=== PATIENT | female | born 1955 | race Caucasian/White ===

== ENCOUNTER 2022-10-18 08:13 | Day surgery (SDC) | payer MEDICARE ==
[2022-10-12 13:34] VITALS: BMI 25.7
[2022-10-18] MEDS ORDERED: fentaNYL PF 100 MCG/2 ML SYRINGE ONE ×2 (08:44→12:51)
[2022-10-18] MEDS ORDERED: Levofloxacin 500 mg/D5W 100 ml Premix Bag ONE (08:55)
[2022-10-18] MEDS ORDERED: Iopamidol 15 ML ONE (11:19)
[2022-10-18] MEDS ORDERED: PROPOFOL 200 MG/20 ML VIAL ONE (11:45)
[2022-10-18] MEDS ORDERED: NEOSTIGMINE 3 MG/3 ML SYR 3 MG/3 ML SYRINGE ONE (11:45)
[2022-10-18] MEDS ORDERED: Rocuronium Bromide 10 MG/ML (10ML VIAL) ONE (11:45)
[2022-10-18] MEDS ORDERED: Ondansetron PF 4 MG/2 ML Vial ONE (11:45)
[2022-10-18] MEDS ORDERED: Lidocaine 1% PF 5 ML VIAL ONE (11:45)
[2022-10-18] MEDS ORDERED: GLYCOPYRROLATE/PF 0.2 MG/ML VIAL ONE (11:45)
[2022-10-18] MEDS ORDERED: HYDROmorphone 0.5 MG/0.5 ML SYRINGE ONE (13:11)
[2022-10-18] MEDS ORDERED: fentaNYL 50 mcg/mL 1 mL Vial ONE (13:34)
[2022-10-18] MEDS ORDERED: Oxybutynin 5 MG TAB ONE (13:36)
[2022-10-18] MEDS ORDERED: Phenazopyridine HCl 100 MG TAB ONE (13:36)
[2022-10-18] MEDS ORDERED: HYDROcodone/Acetaminophen 5/325 mg Tablet ONE (14:16)
== END 2022-10-18 14:27 | disposition home or self-care (01) ==
LOC: SDC 08:13
PROVIDERS: ATTEND Urology
PROC: BT1FYZZ Fluoroscopy of Left Kidney, Ureter and Bladder using Other Contrast (ICD-10-PCS; principal; 2022-10-18)
PROC: 0TH98YZ Insertion of Other Device into Ureter, Via Natural or Artificial Opening Endoscopic (ICD-10-PCS; 2022-10-18)
DX: N13.30 Unspecified hydronephrosis (principal); N39.41 Urge incontinence; K52.9 Noninfective gastroenteritis and colitis, unspecified; Z87.19 Personal history of other diseases of the digestive system; Z90.89 Acquired absence of other organs
CPT/HCPCS: 52332; 52351; 74018; 74420; C1747; C1769; C2617; J3010; J3490; J1170; J1956; J2405; J2704; Q9967

== ENCOUNTER 2022-12-13 13:59 | Outpatient (CLI) | payer MEDICARE | END 2022-12-13 14:00 | disposition home or self-care (01) | LOC: SCSMRI 13:59 | PROVIDERS: ATTEND Internal Medicine | DX: C53.8 Malignant neoplasm of overlapping sites of cervix uteri (principal); N13.30 Unspecified hydronephrosis; K76.89 Other specified diseases of liver; K83.8 Other specified diseases of biliary tract; R19.00 Intra-abdominal and pelvic swelling, mass and lump, unspecified site; Z96.0 Presence of urogenital implants | CPT/HCPCS: 36415; 74183; 80048 ==

== ENCOUNTER → 2022-12-13 | Outpatient (CLI) | payer MEDICARE | LOC: PET 12:30 | PROVIDERS: ATTEND Internal Medicine | DX: C53.8 Malignant neoplasm of overlapping sites of cervix uteri (principal) | CPT/HCPCS: 78815; A9552 ==

== ENCOUNTER 2022-12-20 23:59 | Inpatient (IN) | payer MEDICARE ==
[2022-12-21 00:45] VITALS: BMI 24.3
[2022-12-21] MEDS ORDERED: Ondansetron PF 4 MG/2 ML Vial IVP PRN (01:55)
[2022-12-21] MEDS ORDERED: Promethazine HCl 25 MG/ML VIAL IM PRN (01:59)
[2022-12-21] MEDS ORDERED: Acetaminophen 500 MG TAB PO PRN (02:10)
[2022-12-21] MEDS ORDERED: Acetaminophen 325 MG TAB PO PRN (02:18)
[2022-12-21] MEDS ORDERED: Vancomycin (BATCH) 1.25 GM in Premix 1 BAG IVPB SCH (03:00)
[2022-12-21] MEDS: Lactated Ringer's 1,000 ML IV SCH ×3 (03:03→22:25)
[2022-12-21] MEDS ORDERED: Lactated Ringer's 500 ML IV SCH (04:45)
[2022-12-21] MEDS: HYDROcodone/Acetaminophen 7.5/325 mg Tablet PO PRN ×2 (05:31→12:26)
[2022-12-21] MEDS ORDERED: Meropenem 1 GM in Sodium Chloride 0.9% 100 ML IVPB SCH ×2 (06:00→14:00)
[2022-12-21] MEDS: Oxybutynin 5 MG TAB PO SCH ×2 (08:26→20:55)
[2022-12-21 08:38] LABS: #Eosinphils 0.4 thou/uL (0.0-0.7); #Monocytes 0.6 thou/uL (0.11-0.59); #Neutrophils 8.6 thou/uL (1.40-6.50); %Basophils 0.3 % (0.0-1.0); %Eosinophils 3.5 % (0.0-10.0); %Monocytes 5.7 % (0.0-10.0); %Neutrophils 76.9 % (42.0-75.0); Hematocrit 27.2 % (36.0-47.0); Hemoglobin 8.4 g/dL (12.0-16.0); Mean Corpuscular HGB CONC 30.9 g/dL (32.0-36.0); Mean Corpuscular Hemoglobin 29.6 pg (27.0-31.0); Mean Corpuscular Volume 95.8 fl (78.0-98.0); Mean Platelet Volume 8.9 fL (7.4-10.4); Platelet Count 455 10x3/uL (130-400); RBC Distribution Width 17.2 % (11.5-14.5); Red Blood Cell (RBC) Count 2.84 mill/uL (4.20-5.40); White Blood Cell (WBC) Count 11.2 10x3/uL (4.8-10.8)
[2022-12-21] MEDS ORDERED: HYDROcodone/Acetaminophen 5/325 mg Tablet PO SCH (08:45)
[2022-12-21] MEDS: Heparin 5,000 UNITS/ML VIAL SC SCH ×3 (08:58→20:56)
[2022-12-21 09:06] LABS: Anion Gap 15 mmol/L (10-20); BUN (Urea Nitrogen) 10 mg/dL (9.8-20.1); Calc. Creatinine Clearance 79 mL/min (70-130); Calcium 7.2 mg/dL (7.8-10.44); Carbon Dioxide 15 mmol/L (23-31); Chloride 108 mmol/L (98-107); Estimated GFR 96; Glucose 58 mg/dL (80-115); Potassium 3.8 mmol/L (3.5-5.1); Sodium 134 mmol/L (136-145)
[2022-12-21] MEDS ORDERED: Magnevist 469MG/ML 20 ML VIAL ONE (10:56)
[2022-12-21] MEDS: Promethazine 25 MG TAB PO PRN ×2 (13:05→17:07)
[2022-12-21] MEDS: Meropenem 1 GM in Sodium Chloride 0.9% 100 ML IVPB SCH ×2 (14:45→20:57)
[2022-12-21] MEDS: HYDROcodone/Acetaminophen 10/325 mg Tablet PO PRN ×2 (16:20→22:11)
[2022-12-21] MEDS: Lorazepam 1 MG TAB PO PRN (20:55)
[2022-12-22] MEDS: Vancomycin 1 GM in Premix 1 BAG IVPB SCH (03:57)
[2022-12-22] MEDS: Promethazine 25 MG TAB PO PRN ×4 (03:57→22:45)
[2022-12-22] MEDS: HYDROcodone/Acetaminophen 10/325 mg Tablet PO PRN ×4 (03:57→22:44)
[2022-12-22] MEDS: Meropenem 1 GM in Sodium Chloride 0.9% 100 ML IVPB SCH ×3 (06:20→20:48)
[2022-12-22 06:26] LABS: #Basophils 0.1 thou/uL (0.0-0.2); #Eosinphils 0.4 thou/uL (0.0-0.7); #Monocytes 0.8 thou/uL (0.11-0.59); #Neutrophils 8.2 thou/uL (1.40-6.50); %Basophils 0.4 % (0.0-1.0); %Eosinophils 3.9 % (0.0-10.0); %Lymphocytes 14.5 % (21.0-51.0); %Monocytes 7.4 % (0.0-10.0); %Neutrophils 72.4 % (42.0-75.0); Hematocrit 28.5 % (36.0-47.0); Mean Corpuscular HGB CONC 31.6 g/dL (32.0-36.0); Mean Corpuscular Hemoglobin 29.7 pg (27.0-31.0); Mean Corpuscular Volume 94.1 fl (78.0-98.0); Platelet Count 449 10x3/uL (130-400); RBC Distribution Width 17.5 % (11.5-14.5); Red Blood Cell (RBC) Count 3.03 mill/uL (4.20-5.40); White Blood Cell (WBC) Count 11.3 10x3/uL (4.8-10.8)
[2022-12-22 07:01] LABS: Anion Gap 11 mmol/L (10-20); BUN (Urea Nitrogen) 12 mg/dL (9.8-20.1); Calc. Creatinine Clearance 57 mL/min (70-130); Calcium 8.3 mg/dL (7.8-10.44); Carbon Dioxide 25 mmol/L (23-31); Chloride 107 mmol/L (98-107); Estimated GFR 66; Glucose 82 mg/dL (80-115); Potassium 3.5 mmol/L (3.5-5.1); Sodium 139 mmol/L (136-145)
[2022-12-22] MEDS: Morphine 2 MG/ML VIAL SLOW IVP PRN ×3 (08:27→19:45)
[2022-12-22] MEDS: Heparin 5,000 UNITS/ML VIAL SC SCH ×3 (08:27→20:46)
[2022-12-22] MEDS: Polyethylene Glycol 3350 17 GM Packet PO SCH (08:27)
[2022-12-22] MEDS: Lactated Ringer's 1,000 ML IV SCH ×2 (08:31→21:03)
[2022-12-22] MEDS ORDERED: Polyethylene Glycol 3350 17 GM Packet PO SCH (09:00)
[2022-12-22] MEDS ORDERED: Morphine 2 MG/ML VIAL SLOW IVP SCH (15:00)
[2022-12-22] MEDS: Lorazepam 1 MG TAB PO PRN (20:44)
[2022-12-23] MEDS: Morphine 2 MG/ML VIAL SLOW IVP PRN ×6 (02:26→21:55)
[2022-12-23 02:47] LABS: Vancomycin, Trough 12.8 ug/mL
[2022-12-23] MEDS: Vancomycin 1 GM in Premix 1 BAG IVPB SCH (04:29)
[2022-12-23] MEDS: Promethazine 25 MG TAB PO PRN ×4 (04:29→23:09)
[2022-12-23] MEDS: HYDROcodone/Acetaminophen 10/325 mg Tablet PO PRN ×4 (04:29→23:09)
[2022-12-23] MEDS: Lactated Ringer's 1,000 ML IV SCH ×2 (04:30→11:57)
[2022-12-23] MEDS: Meropenem 1 GM in Sodium Chloride 0.9% 100 ML IVPB SCH ×2 (06:24→11:57)
[2022-12-23 06:46] LABS: #Eosinphils 0.6 thou/uL (0.0-0.7); #Monocytes 0.6 thou/uL (0.11-0.59); #Neutrophils 7.3 thou/uL (1.40-6.50); %Basophils 0.4 % (0.0-1.0); %Eosinophils 6.1 % (0.0-10.0); %Lymphocytes 16.8 % (21.0-51.0); %Monocytes 5.5 % (0.0-10.0); %Neutrophils 69.3 % (42.0-75.0); Hematocrit 29.9 % (36.0-47.0); Hemoglobin 9.3 g/dL (12.0-16.0); Mean Corpuscular HGB CONC 31.1 g/dL (32.0-36.0); Mean Corpuscular Hemoglobin 30.2 pg (27.0-31.0); Mean Corpuscular Volume 97.1 fl (78.0-98.0); Mean Platelet Volume 9.2 fL (7.4-10.4); Platelet Count 424 10x3/uL (130-400); RBC Distribution Width 17.8 % (11.5-14.5); Red Blood Cell (RBC) Count 3.08 mill/uL (4.20-5.40); White Blood Cell (WBC) Count 10.6 10x3/uL (4.8-10.8)
[2022-12-23 07:07] LABS: Anion Gap 11 mmol/L (10-20); BUN (Urea Nitrogen) 9 mg/dL (9.8-20.1); Calc. Creatinine Clearance 51 mL/min (70-130); Calcium 8.4 mg/dL (7.8-10.44); Carbon Dioxide 25 mmol/L (23-31); Chloride 106 mmol/L (98-107); Estimated GFR 57; Glucose 79 mg/dL (80-115); Potassium 3.3 mmol/L (3.5-5.1); Sodium 139 mmol/L (136-145)
[2022-12-23] MEDS: Polyethylene Glycol 3350 17 GM Packet PO SCH (07:46)
[2022-12-23] MEDS: Heparin 5,000 UNITS/ML VIAL SC SCH ×4 (07:46→20:23)
[2022-12-23] MEDS: Lorazepam 1 MG TAB PO PRN (20:23)
[2022-12-23] MEDS ORDERED: Meropenem 1 GM in Sodium Chloride 0.9% 100 ML IVPB SCH (23:59)
[2022-12-24] MEDS: Lactated Ringer's 1,000 ML IV SCH ×2 (01:40→11:41)
[2022-12-24] MEDS: Morphine 2 MG/ML VIAL SLOW IVP PRN ×6 (02:20→21:43)
[2022-12-24] MEDS: Promethazine 25 MG TAB PO PRN ×4 (06:07→23:58)
[2022-12-24] MEDS: HYDROcodone/Acetaminophen 10/325 mg Tablet PO PRN ×4 (06:08→23:58)
[2022-12-24 08:03] LABS: #Basophils 0.1 thou/uL (0.0-0.2); #Eosinphils 0.5 thou/uL (0.0-0.7); #Monocytes 0.9 thou/uL (0.11-0.59); #Neutrophils 8.8 thou/uL (1.40-6.50); %Basophils 0.6 % (0.0-1.0); %Eosinophils 3.8 % (0.0-10.0); %Lymphocytes 17.2 % (21.0-51.0); %Monocytes 6.9 % (0.0-10.0); %Neutrophils 70.4 % (42.0-75.0); Hematocrit 29.5 % (36.0-47.0); Mean Corpuscular HGB CONC 30.5 g/dL (32.0-36.0); Mean Corpuscular Hemoglobin 29.8 pg (27.0-31.0); Mean Corpuscular Volume 97.7 fl (78.0-98.0); Platelet Count 399 10x3/uL (130-400); RBC Distribution Width 17.9 % (11.5-14.5); Red Blood Cell (RBC) Count 3.02 mill/uL (4.20-5.40); White Blood Cell (WBC) Count 12.5 10x3/uL (4.8-10.8)
[2022-12-24 08:21] LABS: Anion Gap 13 mmol/L (10-20); BUN (Urea Nitrogen) 7 mg/dL (9.8-20.1); Calc. Creatinine Clearance 61 mL/min (70-130); Calcium 8.4 mg/dL (7.8-10.44); Carbon Dioxide 25 mmol/L (23-31); Chloride 104 mmol/L (98-107); Estimated GFR 71; Glucose 85 mg/dL (80-115); Potassium 3.2 mmol/L (3.5-5.1); Sodium 139 mmol/L (136-145)
[2022-12-24] MEDS: Heparin 5,000 UNITS/ML VIAL SC SCH (08:29)
[2022-12-24] MEDS: Polyethylene Glycol 3350 17 GM Packet PO SCH (08:32)
[2022-12-24] MEDS ORDERED: Potassium Chloride 40 MEQ in Premix 1 BAG IVPB SCH (10:45)
[2022-12-24] MEDS: Potassium Chloride 20 MEQ in Premix 1 BAG IVPB SCH ×2 (11:41→13:36)
[2022-12-24 12:26] LABS: Prothrombin Time 13.7 sec (12.0-14.7)
[2022-12-24 12:28] LABS: PTT 40.4 sec (22.9-36.1)
[2022-12-24] MEDS: Sodium Chloride 0.9% 1,000 ML IV SCH ×2 (13:35→23:59)
[2022-12-24] MEDS: cefTRIAXone\\ROCEPHIN 2 GM in Sodium Chloride 0.9% 100 ML IVPB SCH (13:35)
[2022-12-24] MEDS ORDERED: Cefdinir 300 MG CAP PO SCH (21:00)
[2022-12-24] MEDS: Lorazepam 1 MG TAB PO PRN (21:08)
[2022-12-25] MEDS: Morphine 2 MG/ML VIAL SLOW IVP PRN ×3 (00:36→05:15)
[2022-12-25] MEDS ORDERED: hydrOXYzine 25 MG TAB PO SCH (01:00)
[2022-12-25] MEDS: diphenhydrAMINE 25 MG CAP PO PRN (03:52)
[2022-12-25] MEDS: HYDROcodone/Acetaminophen 10/325 mg Tablet PO PRN ×4 (05:14→22:25)
[2022-12-25] MEDS: Promethazine 25 MG TAB PO PRN ×4 (05:14→22:24)
[2022-12-25 07:09] LABS: #Basophils 0.1 thou/uL (0.0-0.2); #Eosinphils 0.4 thou/uL (0.0-0.7); #Monocytes 0.7 thou/uL (0.11-0.59); #Neutrophils 7.9 thou/uL (1.40-6.50); %Basophils 0.7 % (0.0-1.0); %Eosinophils 3.9 % (0.0-10.0); %Lymphocytes 14.4 % (21.0-51.0); %Monocytes 6.3 % (0.0-10.0); %Neutrophils 73.8 % (42.0-75.0); Hematocrit 28.8 % (36.0-47.0); Mean Corpuscular HGB CONC 31.3 g/dL (32.0-36.0); Mean Corpuscular Hemoglobin 30.4 pg (27.0-31.0); Mean Corpuscular Volume 97.3 fl (78.0-98.0); Mean Platelet Volume 8.9 fL (7.4-10.4); Platelet Count 422 10x3/uL (130-400); RBC Distribution Width 17.6 % (11.5-14.5); Red Blood Cell (RBC) Count 2.96 mill/uL (4.20-5.40); White Blood Cell (WBC) Count 10.7 10x3/uL (4.8-10.8)
[2022-12-25 07:31] LABS: Anion Gap 14 mmol/L (10-20); BUN (Urea Nitrogen) 8 mg/dL (9.8-20.1); Calc. Creatinine Clearance 57 mL/min (70-130); Calcium 8.7 mg/dL (7.8-10.44); Carbon Dioxide 24 mmol/L (23-31); Chloride 105 mmol/L (98-107); Estimated GFR 66; Glucose 88 mg/dL (80-115); Potassium 3.5 mmol/L (3.5-5.1); Sodium 139 mmol/L (136-145)
[2022-12-25] MEDS ORDERED: Morphine 2 MG/ML VIAL SLOW IVP SCH (07:45)
[2022-12-25] MEDS: Sodium Chloride 0.9% 1,000 ML IV SCH ×2 (08:09→18:24)
[2022-12-25] MEDS: Polyethylene Glycol 3350 17 GM Packet PO SCH (08:09)
[2022-12-25] MEDS ORDERED: HYDROmorphone 0.5 MG/0.5 ML SYRINGE SLOW IVP SCH (08:30)
[2022-12-25] MEDS ORDERED: fentaNYL 50 mcg/hour Patch TD SCH (09:00)
[2022-12-25] MEDS ORDERED: Morphine 2 MG/ML VIAL SLOW IVP PRN (10:01)
[2022-12-25 10:34] LABS: Prothrombin Time 13.1 sec (12.0-14.7)
[2022-12-25 10:35] LABS: PTT 31.7 sec (22.9-36.1)
[2022-12-25] MEDS: cefTRIAXone\\ROCEPHIN 2 GM in Sodium Chloride 0.9% 100 ML IVPB SCH (10:47)
[2022-12-25] MEDS: Morphine 4 MG/ML VIAL SLOW IVP PRN ×4 (12:17→21:20)
[2022-12-25] MEDS: HYDROmorphone 2 MG TAB PO PRN ×2 (16:25→20:24)
[2022-12-25] MEDS: hydrOXYzine 25 MG TAB PO SCH (20:24)
[2022-12-25 21:08] LABS: Adenovirus F 40-41 Not Detected (Not Detected); Astrovirus Not Detected (Not Detected); C. difficile toxin A+B Not Detected (Not Detected); Campylobacter by PCR Not Detected (Not Detected); Cryptosporidium Not Detected (Not Detected); Cyclospora cayetanensis Not Detected (Not Detected); Entamoeba histolytica Not Detected (Not Detected); Enteroaggregative E. coli Not Detected (Not Detected); Enteropathogenic E. coli Not Detected (Not Detected); Enterotoxigenic E. coli Not Detected (Not Detected); Giardia lamblia Not Detected (Not Detected); Norovirus GI-GII Not Detected (Not Detected); Plesiomonas shigelloides Not Detected (Not Detected); Rotavirus A Not Detected (Not Detected); Salmonella Not Detected (Not Detected); Sapovirus Not Detected (Not Detected); Shiga-toxin-producing E coli Not Detected (Not Detected); Shigella/Enteroinvasive E coli Not Detected (Not Detected); Vibrio Not Detected (Not Detected); Vibrio cholerae Not Detected (Not Detected); Yersinia enterocolitica Not Detected (Not Detected)
[2022-12-25] MEDS: Lorazepam 1 MG TAB PO PRN (21:20)
[2022-12-26] MEDS ORDERED: Acetaminophen 500 MG TAB PO SCH (00:15)
[2022-12-26] MEDS: HYDROmorphone 2 MG TAB PO PRN ×4 (00:30→21:22)
[2022-12-26] MEDS: Sodium Chloride 0.9% 1,000 ML IV SCH ×3 (00:32→21:21)
[2022-12-26] MEDS: Morphine 4 MG/ML VIAL SLOW IVP PRN ×6 (02:20→23:48)
[2022-12-26] MEDS: HYDROcodone/Acetaminophen 10/325 mg Tablet PO PRN ×4 (03:58→23:43)
[2022-12-26] MEDS: Promethazine 25 MG TAB PO PRN ×4 (04:03→23:43)
[2022-12-26 05:35] LABS: #Basophils 0.1 thou/uL (0.0-0.2); #Eosinphils 0.4 thou/uL (0.0-0.7); #Neutrophils 7.7 thou/uL (1.40-6.50); %Basophils 0.5 % (0.0-1.0); %Eosinophils 3.4 % (0.0-10.0); %Lymphocytes 16.9 % (21.0-51.0); %Monocytes 9.1 % (0.0-10.0); %Neutrophils 69.3 % (42.0-75.0); Hematocrit 26.4 % (36.0-47.0); Hemoglobin 8.3 g/dL (12.0-16.0); Mean Corpuscular HGB CONC 31.4 g/dL (32.0-36.0); Mean Corpuscular Hemoglobin 30.7 pg (27.0-31.0); Mean Corpuscular Volume 97.8 fl (78.0-98.0); Mean Platelet Volume 9.8 fL (7.4-10.4); Platelet Count 356 10x3/uL (130-400); RBC Distribution Width 18.2 % (11.5-14.5)
[2022-12-26 06:04] LABS: Anion Gap 11 mmol/L (10-20); BUN (Urea Nitrogen) 9 mg/dL (9.8-20.1); Calc. Creatinine Clearance 56 mL/min (70-130); Calcium 8.3 mg/dL (7.8-10.44); Carbon Dioxide 26 mmol/L (23-31); Chloride 106 mmol/L (98-107); Estimated GFR 64; Glucose 99 mg/dL (80-115); Potassium 3.6 mmol/L (3.5-5.1); Sodium 139 mmol/L (136-145)
[2022-12-26] MEDS: Polyethylene Glycol 3350 17 GM Packet PO SCH (08:12)
[2022-12-26] MEDS: cefTRIAXone\\ROCEPHIN 2 GM in Sodium Chloride 0.9% 100 ML IVPB SCH (14:17)
[2022-12-26] MEDS: diphenhydrAMINE 25 MG CAP PO PRN (20:30)
[2022-12-26] MEDS: hydrOXYzine 25 MG TAB PO SCH (20:30)
[2022-12-27] MEDS: HYDROmorphone 2 MG TAB PO PRN ×3 (02:28→23:45)
[2022-12-27] MEDS: Morphine 4 MG/ML VIAL SLOW IVP PRN ×6 (02:50→21:03)
[2022-12-27] MEDS: diphenhydrAMINE 25 MG CAP PO PRN (02:50)
[2022-12-27] MEDS: HYDROcodone/Acetaminophen 10/325 mg Tablet PO PRN ×2 (05:53→20:29)
[2022-12-27 05:59] LABS: #Basophils 0.1 thou/uL (0.0-0.2); #Eosinphils 0.5 thou/uL (0.0-0.7); #Neutrophils 7.5 thou/uL (1.40-6.50); %Basophils 0.5 % (0.0-1.0); %Eosinophils 4.6 % (0.0-10.0); %Lymphocytes 16.7 % (21.0-51.0); %Monocytes 8.9 % (0.0-10.0); %Neutrophils 68.3 % (42.0-75.0); Hematocrit 26.4 % (36.0-47.0); Mean Corpuscular HGB CONC 30.3 g/dL (32.0-36.0); Mean Corpuscular Hemoglobin 29.7 pg (27.0-31.0); Mean Corpuscular Volume 98.1 fl (78.0-98.0); Mean Platelet Volume 9.1 fL (7.4-10.4); Platelet Count 336 10x3/uL (130-400); Red Blood Cell (RBC) Count 2.69 mill/uL (4.20-5.40); White Blood Cell (WBC) Count 10.9 10x3/uL (4.8-10.8)
[2022-12-27 06:17] LABS: Anion Gap 4 mmol/L (10-20); BUN (Urea Nitrogen) 8 mg/dL (9.8-20.1); Calc. Creatinine Clearance 55 mL/min (70-130); Calcium 8.2 mg/dL (7.8-10.44); Carbon Dioxide 23 mmol/L (23-31); Chloride 111 mmol/L (98-107); Estimated GFR 63; Glucose 104 mg/dL (80-115); Sodium 135 mmol/L (136-145)
[2022-12-27] MEDS: Sodium Chloride 0.9% 1,000 ML IV SCH ×2 (08:05→16:01)
[2022-12-27] MEDS: Polyethylene Glycol 3350 17 GM Packet PO SCH (08:08)
[2022-12-27] MEDS: Potassium Chloride 20 MEQ in Premix 1 BAG IVPB SCH ×2 (09:32→15:04)
[2022-12-27] MEDS ORDERED: fentaNYL 50 mcg/mL 1 mL Vial ONE (11:01)
[2022-12-27] MEDS ORDERED: Iopamidol 15 ML ONE (12:18)
[2022-12-27] MEDS ORDERED: cefTRIAXone (ROCEPHIN) 2 GM VIAL ONE (12:24)
[2022-12-27] MEDS ORDERED: Sodium Chloride 0.9% 100 ML ONE (12:24)
[2022-12-27] MEDS ORDERED: fentaNYL PF 100 MCG/2 ML SYRINGE ONE (12:31)
[2022-12-27] MEDS: cefTRIAXone\\ROCEPHIN 2 GM in Sodium Chloride 0.9% 100 ML IVPB SCH (12:32)
[2022-12-27] MEDS ORDERED: Dexamethasone 20 MG/5 ML VIAL ONE (12:41)
[2022-12-27] MEDS ORDERED: PROPOFOL 200 MG/20 ML VIAL ONE (12:41)
[2022-12-27] MEDS ORDERED: Lidocaine 1% PF 5 ML VIAL ONE (12:41)
[2022-12-27] MEDS ORDERED: Ondansetron PF 4 MG/2 ML Vial ONE ×2 (12:41→13:54)
[2022-12-27] MEDS ORDERED: HYDROmorphone 0.5 MG/0.5 ML SYRINGE ONE ×2 (12:52→13:57)
[2022-12-27] MEDS ORDERED: Promethazine HCl 25 MG/ML VIAL IM PRN (13:24)
[2022-12-27] MEDS ORDERED: Morphine Sulfate 2 MG/ML SYRINGE SLOW IVP PRN (13:24)
[2022-12-27] MEDS ORDERED: HYDROmorphone 2 MG/ML VIAL SLOW IVP PRN (13:24)
[2022-12-27] MEDS ORDERED: Ondansetron HCl/PF 4 MG/2 ML Vial IVP PRN (13:24)
[2022-12-27] MEDS ORDERED: fentaNYL 50 mcg/hour Patch TD SCH (15:30)
[2022-12-27] MEDS: Promethazine 25 MG TAB PO PRN ×2 (17:04→23:44)
[2022-12-27] MEDS: hydrOXYzine 25 MG TAB PO SCH (23:04)
[2022-12-28] MEDS: Lorazepam 1 MG TAB PO PRN (00:37)
[2022-12-28] MEDS: Morphine 4 MG/ML VIAL SLOW IVP PRN ×4 (01:38→12:47)
[2022-12-28] MEDS: Sodium Chloride 0.9% 1,000 ML IV SCH (03:39)
[2022-12-28] MEDS: HYDROmorphone 2 MG TAB PO PRN ×2 (07:35→12:04)
[2022-12-28] MEDS: Promethazine 25 MG TAB PO PRN (07:35)
[2022-12-28] MEDS: Polyethylene Glycol 3350 17 GM Packet PO SCH (07:38)
[2022-12-28 07:54] LABS: #Monocytes 0.5 thou/uL (0.11-0.59); #Neutrophils 6.8 thou/uL (1.40-6.50); %Basophils 0.2 % (0.0-1.0); %Lymphocytes 11.4 % (21.0-51.0); %Monocytes 6.3 % (0.0-10.0); %Neutrophils 81.3 % (42.0-75.0); Hemoglobin 8.8 g/dL (12.0-16.0); Mean Corpuscular HGB CONC 29.3 g/dL (32.0-36.0); Mean Corpuscular Hemoglobin 29.8 pg (27.0-31.0); Mean Corpuscular Volume 101.7 fl (78.0-98.0); Mean Platelet Volume 9.3 fL (7.4-10.4); Platelet Count 373 10x3/uL (130-400); RBC Distribution Width 18.2 % (11.5-14.5); Red Blood Cell (RBC) Count 2.95 mill/uL (4.20-5.40); White Blood Cell (WBC) Count 8.4 10x3/uL (4.8-10.8)
[2022-12-28 08:16] LABS: Anion Gap 14 mmol/L (10-20); BUN (Urea Nitrogen) 12 mg/dL (9.8-20.1); Calc. Creatinine Clearance 60 mL/min (70-130); Calcium 8.6 mg/dL (7.8-10.44); Carbon Dioxide 18 mmol/L (23-31); Chloride 110 mmol/L (98-107); Estimated GFR 69; Glucose 115 mg/dL (80-115); Potassium 3.6 mmol/L (3.5-5.1); Sodium 138 mmol/L (136-145)
[2022-12-28] MEDS: HYDROcodone/Acetaminophen 10/325 mg Tablet PO PRN ×2 (09:29→12:48)
[2022-12-28 12:00] VITALS: BP 122/64; TEMP 98.4
[2022-12-28] MEDS: cefTRIAXone\\ROCEPHIN 2 GM in Sodium Chloride 0.9% 100 ML IVPB SCH (13:12)
== END 2022-12-28 13:38 | disposition home health service (06) | DRG 872 ==
LOC: T4-A 12-21 00:26 → OBSVTOIN 12-21 01:55
PROVIDERS: ADMIT Family Medicine; ATTEND Family Medicine
PROC: 0T9B70Z Drainage of Bladder with Drainage Device, Via Natural or Artificial Opening (ICD-10-PCS; principal; 2022-12-22)
PROC: 02HV33Z Insertion of Infusion Device into Superior Vena Cava, Percutaneous Approach (ICD-10-PCS; 2022-12-22)
PROC: B5181ZA Fluoroscopy of Superior Vena Cava using Low Osmolar Contrast, Guidance (ICD-10-PCS; 2022-12-22)
PROC: 3E04329 Introduction of Other Anti-infective into Central Vein, Percutaneous Approach (ICD-10-PCS; 2022-12-22)
PROC: BT1D1ZZ Fluoroscopy of Right Kidney, Ureter and Bladder using Low Osmolar Contrast (ICD-10-PCS; 2022-12-22)
PROC: 0T9130Z Drainage of Left Kidney with Drainage Device, Percutaneous Approach (ICD-10-PCS; 2022-12-25)
PROC: 0TJB8ZZ Inspection of Bladder, Via Natural or Artificial Opening Endoscopic (ICD-10-PCS; 2022-12-27)
PROC: BT121ZZ Fluoroscopy of Left Kidney using Low Osmolar Contrast (ICD-10-PCS; 2022-12-27)
PROC: 0T2BX0Z Change Drainage Device in Bladder, External Approach (ICD-10-PCS; 2022-12-27)
PROC: 0TP98DZ Removal of Intraluminal Device from Ureter, Via Natural or Artificial Opening Endoscopic (ICD-10-PCS; 2022-12-27)
DX: A41.9 Sepsis, unspecified organism (principal); C79.19 Secondary malignant neoplasm of other urinary organs; N13.6 Pyonephrosis; K50.00 Crohn's disease of small intestine without complications; M81.0 Age-related osteoporosis without current pathological fracture; N18.2 Chronic kidney disease, stage 2 (mild); C53.9 Malignant neoplasm of cervix uteri, unspecified; M19.90 Unspecified osteoarthritis, unspecified site; F90.9 Attention-deficit hyperactivity disorder, unspecified type; D63.1 Anemia in chronic kidney disease; R82.81 Pyuria; D75.839 Thrombocytosis, unspecified; Z89.021 Acquired absence of right finger(s); Z98.890 Other specified postprocedural states; Z79.899 Other long term (current) drug therapy; F41.1 Generalized anxiety disorder; R33.9 Retention of urine, unspecified
CPT/HCPCS: 36415; 36569; 50430; 50433; 51700; 72197; 74176; 74420; 76942; 80048; 80053; 80202; 83630; 85025; 85610; 85730; 87040; 87324; 87449; 87507; 99215; A9579; G0463; J0696; J1100; J1170; J1644; J2185; J2270; J2272; J2405; J2550; J2704; J3010; J3370; J3370-JW; J3480; J3490; J7050; J7120; Q0169; Q9967

== ENCOUNTER 2023-01-09 19:57 | Observation (INO) | payer MEDICARE ==
[2023-01-09 21:11] LABS: #Basophils 0.1 thou/uL (0.0-0.2); #Eosinphils 0.7 thou/uL (0.0-0.7); #Monocytes 1.2 thou/uL (0.11-0.59); #Neutrophils 7.9 thou/uL (1.40-6.50); %Basophils 0.8 % (0.0-1.0); %Eosinophils 5.5 % (0.0-10.0); %Lymphocytes 19.8 % (21.0-51.0); %Monocytes 9.1 % (0.0-10.0); %Neutrophils 62.5 % (42.0-75.0); Hematocrit 24.8 % (36.0-47.0); Hemoglobin 7.7 g/dL (12.0-16.0); Mean Corpuscular Hemoglobin 30.3 pg (27.0-31.0); Mean Corpuscular Volume 97.6 fl (78.0-98.0); Mean Platelet Volume 9.3 fL (7.4-10.4); Platelet Count 463 10x3/uL (130-400); RBC Distribution Width 17.8 % (11.5-14.5); Red Blood Cell (RBC) Count 2.54 mill/uL (4.20-5.40); White Blood Cell (WBC) Count 12.6 10x3/uL (4.8-10.8)
[2023-01-09 21:35] LABS: ALT (SGPT) 12 U/L (8-55); AST (SGOT) 10 U/L (5-34); Albumin 3.1 g/dL (3.4-4.8); Alkaline Phosphatase 69 U/L (40-110); Anion Gap 11 mmol/L (10-20); BUN (Urea Nitrogen) 13 mg/dL (9.8-20.1); Bilirubin, Total 0.3 mg/dL (0.2-1.2); Calc. Creatinine Clearance 0 mL/min (70-130); Calcium 8.8 mg/dL (7.8-10.44); Carbon Dioxide 21 mmol/L (23-31); Chloride 104 mmol/L (98-107); Estimated GFR 38; Glucose 117 mg/dL (80-115); Lipase 9 U/L (8-78); Potassium 3.4 mmol/L (3.5-5.1); Protein, Total 6.1 g/dL (5.8-8.1); Sodium 133 mmol/L (136-145)
[2023-01-09 21:39] LABS: Bacteria/HPF 3+ HPF (None Seen); Bilirubin Negative (Negative); Blood, Urine 3+ (Negative); CAUTI Indications for Culture Alt mental st,lethar; Clarity Turbid (Clear); Glucose, Urine (Dipstick) Normal (Negative); Ketone, Urine Negative (Negative); Leukocyte 500 Leu/uL (Negative); Nitrite Negative (Negative); Protein, Urine (Dipstick) 50 mg/dL (Neg-Trace); Specific Gravity, Urine 1.004 (1.002-1.036); Squamous Epithelial 0-3 HPF (0-3); Transitional Epithelial 0-3 HPF (None Seen); Urobilinogen Normal mg/dL (Less than 2); WBC/HPF 21-50 HPF (0-3); Yeast-Budding 1+ HPF (None Seen)
[2023-01-09 21:41] LABS: Urine Culture Reflex Yes Yes
[2023-01-09] MEDS ORDERED: Ondansetron PF 4 MG/2 ML Vial IVP PRN (23:04)
[2023-01-09] MEDS ORDERED: Ondansetron ODT 4 MG TAB PO PRN (23:04)
[2023-01-09] MEDS ORDERED: Acetaminophen 500 MG TAB PO PRN (23:23)
[2023-01-10] MEDS ORDERED: Ondansetron ODT 4 MG TAB PO PRN (00:23)
[2023-01-10] MEDS ORDERED: HYDROmorphone 2 MG TAB PO PRN (00:23)
[2023-01-10] MEDS ORDERED: diphenhydrAMINE 25 MG CAP PO PRN (00:23)
[2023-01-10] MEDS: Lactated Ringer's 1,000 ML IV SCH ×2 (00:24→10:55)
[2023-01-10 00:27] VITALS: BMI 24.0
[2023-01-10] MEDS ORDERED: fentaNYL 75 mcg/hour Patch TD SCH (01:00)
[2023-01-10] MEDS: HYDROcodone/Acetaminophen 10/325 mg Tablet PO PRN ×2 (01:33→10:56)
[2023-01-10 07:28] LABS: #Basophils 0.1 thou/uL (0.0-0.2); #Eosinphils 0.6 thou/uL (0.0-0.7); #Monocytes 1.1 thou/uL (0.11-0.59); #Neutrophils 7.8 thou/uL (1.40-6.50); %Basophils 0.7 % (0.0-1.0); %Eosinophils 4.7 % (0.0-10.0); %Lymphocytes 16.7 % (21.0-51.0); %Monocytes 9.2 % (0.0-10.0); %Neutrophils 66.2 % (42.0-75.0); Hemoglobin 7.8 g/dL (12.0-16.0); Mean Corpuscular HGB CONC 31.2 g/dL (32.0-36.0); Mean Corpuscular Hemoglobin 30.2 pg (27.0-31.0); Mean Corpuscular Volume 96.9 fl (78.0-98.0); Mean Platelet Volume 9.2 fL (7.4-10.4); Platelet Count 466 10x3/uL (130-400); RBC Distribution Width 17.9 % (11.5-14.5); Red Blood Cell (RBC) Count 2.58 mill/uL (4.20-5.40); White Blood Cell (WBC) Count 11.8 10x3/uL (4.8-10.8)
[2023-01-10 07:56] LABS: Anion Gap 13 mmol/L (10-20); BUN (Urea Nitrogen) 10 mg/dL (9.8-20.1); Calc. Creatinine Clearance 40 mL/min (70-130); Calcium 7.7 mg/dL (7.8-10.44); Carbon Dioxide 22 mmol/L (23-31); Chloride 108 mmol/L (98-107); Estimated GFR 43; Glucose 86 mg/dL (80-115); Potassium 4.5 mmol/L (3.5-5.1); Sodium 138 mmol/L (136-145)
[2023-01-10] MEDS ORDERED: Lidocaine 1% PF 5 ML VIAL ONE (08:06)
[2023-01-10] MEDS ORDERED: Sodium Bicarbonate 2.5 MEQ/5 ML VIAL ONE (08:07)
[2023-01-10] MEDS ORDERED: Cefepime 1 GM in Sodium Chloride 0.9% 100 ML IVPB SCH (09:00)
[2023-01-10] MEDS ORDERED: Midazolam HCl 2 mg/2 ml Vial ONE (09:02)
[2023-01-10] MEDS ORDERED: fentaNYL 50 mcg/mL 1 mL Vial ONE (09:03)
[2023-01-10] MEDS: Naloxegol 12.5 MG TAB PO SCH ×2 (10:49→10:56)
[2023-01-10] MEDS: Senokot S 8.6-50 MG TAB PO SCH ×2 (10:50→10:56)
[2023-01-10] MEDS ORDERED: Iopamidol 300 61% 100 ML VIAL FS ONE (12:37)
[2023-01-10 13:41] VITALS: BP 136/57; TEMP 99
[2023-01-10] MEDS ORDERED: hydrOXYzine 25 MG TAB PO SCH (21:00)
[2023-01-10] MEDS ORDERED: Lorazepam 1 MG TAB PO SCH (21:00)
[2023-01-10] MEDS ORDERED: Promethazine 25 MG TAB PO SCH (21:00)
== END 2023-01-10 13:56 | disposition home or self-care (01) ==
LOC: ERS 19:57 → T4-A 22:21
PROVIDERS: ADMIT Family Medicine; ATTEND Family Medicine
DX: T83.032A Leakage of nephrostomy catheter, initial encounter (principal); K50.90 Crohn's disease, unspecified, without complications; M19.90 Unspecified osteoarthritis, unspecified site; C53.9 Malignant neoplasm of cervix uteri, unspecified; F17.200 Nicotine dependence, unspecified, uncomplicated; N17.9 Acute kidney failure, unspecified; E86.0 Dehydration; D64.9 Anemia, unspecified; F41.9 Anxiety disorder, unspecified; K59.03 Drug induced constipation; N13.30 Unspecified hydronephrosis; D72.829 Elevated white blood cell count, unspecified; N18.2 Chronic kidney disease, stage 2 (mild); D69.6 Thrombocytopenia, unspecified; F90.9 Attention-deficit hyperactivity disorder, unspecified type; E88.09 Other disorders of plasma-protein metabolism, not elsewhere classified; E87.1 Hypo-osmolality and hyponatremia; E87.6 Hypokalemia; F41.1 Generalized anxiety disorder; Z98.890 Other specified postprocedural states; Z90.89 Acquired absence of other organs; Z79.899 Other long term (current) drug therapy
CPT/HCPCS: 50435; 80048; 80053; 81001; 83690; 85025 ×2; 87086; 93005; 96374; 96375; C1729; G0378 ×3; J0692; J2250; J3010; J3490; J7120; Q9967

== ENCOUNTER 2023-02-02 11:42 | Day surgery (SDC) | payer MEDICARE ==
[2023-02-01 10:16] VITALS: BMI 22.1
[2023-02-02] MEDS ORDERED: EPINEPHrine 1 MG/ML AMP ONE (12:47)
[2023-02-02] MEDS ORDERED: Lidocaine 2% PF 5 ML VIAL ONE (12:47)
[2023-02-02] MEDS ORDERED: Bupivacaine 0.25% HCL 30 ML VIAL ONE (12:47)
[2023-02-02] MEDS ORDERED: Midazolam HCl 2 mg/2 ml Vial ONE (13:07)
[2023-02-02] MEDS ORDERED: CEFAZOLIN 2 GM VIAL ONE (13:08)
[2023-02-02] MEDS ORDERED: Sodium Chloride 0.9% 100 ML ONE (13:08)
[2023-02-02] MEDS ORDERED: fentaNYL 50 mcg/mL 1 mL Vial ONE (13:10)
[2023-02-02] MEDS ORDERED: Ondansetron PF 4 MG/2 ML Vial ONE (13:24)
[2023-02-02] MEDS ORDERED: Lidocaine 1% PF 5 ML VIAL ONE (13:24)
[2023-02-02] MEDS ORDERED: PROPOFOL 200 MG/20 ML VIAL ONE (13:24)
== END 2023-02-02 15:50 | disposition home or self-care (01) ==
LOC: SDC 11:42
PROVIDERS: ATTEND Surgery
PROC: 0JH60WZ Insertion of Totally Implantable Vascular Access Device into Chest Subcutaneous Tissue and Fascia, Open Approach (ICD-10-PCS; principal; 2023-02-02)
DX: C53.9 Malignant neoplasm of cervix uteri, unspecified (principal)
CPT/HCPCS: 36561; 71045; J3010; J0171; J1642; J2001; J2250; J2405; J2704; J3490; S0020

== ENCOUNTER 2023-02-24 07:51 | Inpatient (IN) | payer MEDICARE ==
[2023-02-24] MEDS ORDERED: Morphine 4 MG/ML VIAL ONE (09:01)
[2023-02-24] MEDS ORDERED: Ondansetron PF 4 MG/2 ML Vial ONE (09:03)
[2023-02-24 09:04] LABS: Hematocrit 24.4 % (36.0-47.0); Hemoglobin 7.9 g/dL (12.0-16.0); Mean Corpuscular HGB CONC 32.4 g/dL (32.0-36.0); Mean Corpuscular Hemoglobin 32.1 pg (27.0-31.0); Mean Corpuscular Volume 99.2 fl (78.0-98.0); Mean Platelet Volume 9.9 fL (7.4-10.4); Platelet Count 449 10x3/uL (130-400); RBC Distribution Width 21.5 % (11.5-14.5); Red Blood Cell (RBC) Count 2.46 mill/uL (4.20-5.40); White Blood Cell (WBC) Count 32.5 10x3/uL (4.8-10.8)
[2023-02-24 09:15] LABS: Delete Auto Diff?? YES; Manual Diff?? YES
[2023-02-24 09:27] LABS: ALT (SGPT) 8 U/L (8-55); AST (SGOT) 10 U/L (5-34); Albumin 3.6 g/dL (3.4-4.8); Alkaline Phosphatase 72 U/L (40-110); Anion Gap 13 mmol/L (10-20); BUN (Urea Nitrogen) 20 mg/dL (9.8-20.1); Bilirubin, Total 0.2 mg/dL (0.2-1.2); Calc. Creatinine Clearance 0 mL/min (70-130); Carbon Dioxide 22 mmol/L (23-31); Chloride 107 mmol/L (98-107); Estimated GFR 68; Globulin 2.7 g/dL (2.4-3.5); Glucose 107 mg/dL (80-115); Potassium 3.3 mmol/L (3.5-5.1); Protein, Total 6.3 g/dL (5.8-8.1); Sodium 139 mmol/L (136-145)
[2023-02-24 09:39] LABS: Anisocytosis MARKED = >30 cells HPF (0-5); Band 9 % (5-11); CellaVision Operator ID LAB.CMB; Lymphocytes 5 % (21-51); Macrocytosis MODERATE=16-30 cells HPF (0-5); Neutrophil 85 % (42-75); Platelet Adequacy Comment Platelets Increased; Polychromasia SLIGHT = 2-3 cells HPF (0-2); Reactive Lymphocytes 1 % (0-10); Total Cell Count 103
[2023-02-24 09:44] LABS: Bacteria/HPF 1+ HPF (None Seen); Bilirubin Negative (Negative); Blood, Urine 2+ (Negative); Blood, Urine 3+ (Negative); CAUTI Indications for Culture Immunosuppressed; Clarity Turbid (Clear); Glucose, Urine (Dipstick) Normal (Negative); Ketone, Urine Negative (Negative); Leukocyte 500 Leu/uL (Negative); Nitrite 2+ (Negative); Protein, Urine (Dipstick) 100 mg/dL (Neg-Trace); RBC/HPF 21-50 HPF (0-3); Specific Gravity, Urine 1.021 (1.002-1.036); Squamous Epithelial None Seen HPF (0-3); Urobilinogen Normal mg/dL (Less than 2); WBC/HPF Greater than 50 HPF (0-3)
[2023-02-24 09:45] LABS: Urine Culture Reflex Yes Yes
[2023-02-24 09:46] LABS: Bacteria/HPF 1+ HPF (None Seen)
[2023-02-24] MEDS ORDERED: HYDROmorphone 0.5 MG/0.5 ML SYRINGE ONE (09:58)
[2023-02-24] MEDS ORDERED: Cefepime 2 GM VIAL ONE (09:59)
[2023-02-24] MEDS ORDERED: Vancomycin 1 GM/200 ML (FROZEN) BAG ONE (10:46)
[2023-02-24] MEDS ORDERED: Ondansetron ODT 4 MG TAB PO PRN ×2 (12:52→14:26)
[2023-02-24] MEDS ORDERED: Acetaminophen 325 MG TAB PO PRN (12:52)
[2023-02-24] MEDS ORDERED: Potassium Chloride 20 MEQ TAB PO SCH (13:15)
[2023-02-24 14:11] VITALS: BMI 23.0
[2023-02-24] MEDS ORDERED: diphenhydrAMINE 25 MG CAP PO PRN (14:26)
[2023-02-24] MEDS ORDERED: Iopamidol-370 76% 500 ML MDV (1 ML CHARGE) ONE (14:32)
[2023-02-24] MEDS: Lactated Ringer's 1,000 ML IV SCH (14:35)
[2023-02-24] MEDS: HYDROmorphone 2 MG TAB PO PRN ×2 (15:29→21:49)
[2023-02-24] MEDS: Promethazine 25 MG TAB PO SCH (20:00)
[2023-02-24] MEDS: hydrOXYzine 25 MG TAB PO SCH (20:00)
[2023-02-24] MEDS: Lorazepam 1 MG TAB PO SCH (20:01)
[2023-02-24] MEDS: HYDROcodone/Acetaminophen 10/325 mg Tablet PO PRN (20:01)
[2023-02-24] MEDS ORDERED: Vancomycin 1 GM in Premix 1 BAG IVPB SCH (21:00)
[2023-02-24] MEDS: Cefepime 2 GM in Sodium Chloride 0.9% 100 ML IVPB SCH (21:11)
[2023-02-24] MEDS: Vancomycin HCl 750 MG in Sodium Chloride 0.9% 250 ML 250 ML IVPB SCH (21:49)
[2023-02-25] MEDS: HYDROmorphone 2 MG TAB PO PRN ×3 (03:36→14:50)
[2023-02-25] MEDS: Lactated Ringer's 1,000 ML IV SCH ×3 (03:36→19:20)
[2023-02-25 06:17] LABS: Hematocrit 22.6 % (36.0-47.0); Hemoglobin 7.3 g/dL (12.0-16.0); Mean Corpuscular HGB CONC 32.3 g/dL (32.0-36.0); Mean Platelet Volume 9.6 fL (7.4-10.4); Platelet Count 377 10x3/uL (130-400); RBC Distribution Width 21.9 % (11.5-14.5); Red Blood Cell (RBC) Count 2.21 mill/uL (4.20-5.40); White Blood Cell (WBC) Count 26.5 10x3/uL (4.8-10.8)
[2023-02-25 06:44] LABS: Delete Auto Diff?? YES; Manual Diff?? YES; Mean Corpuscular Volume 102.3 fl (78.0-98.0)
[2023-02-25 06:46] LABS: ALT (SGPT) Less than 7 U/L (8-55); AST (SGOT) 9 U/L (5-34); Albumin 2.8 g/dL (3.4-4.8); Alkaline Phosphatase 70 U/L (40-110); Anion Gap 12 mmol/L (10-20); BUN (Urea Nitrogen) 14 mg/dL (9.8-20.1); Bilirubin, Total 0.3 mg/dL (0.2-1.2); Calc. Creatinine Clearance 62 mL/min (70-130); Calcium 8.4 mg/dL (7.8-10.44); Carbon Dioxide 22 mmol/L (23-31); Chloride 110 mmol/L (98-107); Estimated GFR 77; Globulin 2.4 g/dL (2.4-3.5); Glucose 77 mg/dL (80-115); Potassium 4.3 mmol/L (3.5-5.1); Protein, Total 5.2 g/dL (5.8-8.1); Sodium 140 mmol/L (136-145)
[2023-02-25 08:12] LABS: Anisocytosis MODERATE=16-30 cells HPF (0-5); Band 9 % (5-11); CellaVision Operator ID LAB.CMB; Lymphocytes 3 % (21-51); Macrocytosis MODERATE=16-30 cells HPF (0-5); Neutrophil 88 % (42-75); Platelet Adequacy Comment Platelets Normal; Polychromasia SLIGHT = 2-3 cells HPF (0-2); Total Cell Count 100
[2023-02-25] MEDS: Cefepime 2 GM in Sodium Chloride 0.9% 100 ML IVPB SCH ×2 (09:11→21:09)
[2023-02-25] MEDS ORDERED: Folic Acid/Vit B Comp W-C PO SCH (09:30)
[2023-02-25] MEDS: Vancomycin HCl 750 MG in Sodium Chloride 0.9% 250 ML 250 ML IVPB SCH ×2 (10:23→22:02)
[2023-02-25] MEDS: HYDROcodone/Acetaminophen 10/325 mg Tablet PO PRN ×2 (11:31→19:19)
[2023-02-25] MEDS: hydrOXYzine 25 MG TAB PO SCH (21:09)
[2023-02-25] MEDS: Promethazine 25 MG TAB PO SCH (21:09)
[2023-02-25] MEDS: Lorazepam 1 MG TAB PO SCH (21:09)
[2023-02-25 21:45] LABS: Vancomycin, Trough 15.6 ug/mL
[2023-02-26] MEDS: HYDROcodone/Acetaminophen 10/325 mg Tablet PO PRN ×3 (02:40→17:43)
[2023-02-26] MEDS: Lactated Ringer's 1,000 ML IV SCH ×3 (05:44→20:00)
[2023-02-26] MEDS: HYDROmorphone 2 MG TAB PO PRN (05:44)
[2023-02-26 05:48] LABS: Hematocrit 23.3 % (36.0-47.0); Hemoglobin 7.4 g/dL (12.0-16.0); Mean Corpuscular HGB CONC 31.8 g/dL (32.0-36.0); Mean Corpuscular Hemoglobin 32.7 pg (27.0-31.0); Mean Corpuscular Volume 103.1 fl (78.0-98.0); Mean Platelet Volume 9.8 fL (7.4-10.4); Platelet Count 347 10x3/uL (130-400); RBC Distribution Width 21.6 % (11.5-14.5); Red Blood Cell (RBC) Count 2.26 mill/uL (4.20-5.40); White Blood Cell (WBC) Count 22.5 10x3/uL (4.8-10.8)
[2023-02-26 05:53] LABS: Manual Diff?? YES
[2023-02-26 05:54] LABS: Delete Auto Diff?? YES
[2023-02-26 06:22] LABS: ALT (SGPT) 7 U/L (8-55); AST (SGOT) 11 U/L (5-34); Albumin 2.8 g/dL (3.4-4.8); Alkaline Phosphatase 64 U/L (40-110); Anion Gap 13 mmol/L (10-20); Anisocytosis SLIGHT = 6-15 cells HPF (0-5); BUN (Urea Nitrogen) 15 mg/dL (9.8-20.1); Band 4 % (5-11); Bilirubin, Total 0.3 mg/dL (0.2-1.2); Calc. Creatinine Clearance 64 mL/min (70-130); Calcium 8.6 mg/dL (7.8-10.44); Carbon Dioxide 23 mmol/L (23-31); CellaVision Operator ID lab.abc; Chloride 107 mmol/L (98-107); Eosinophils 2 % (0-10); Estimated GFR 79; Globulin 2.3 g/dL (2.4-3.5); Glucose 80 mg/dL (80-115); Lymphocytes 3 % (21-51); Macrocytosis SLIGHT = 6-15 cells HPF (0-5); Metamyelocyte 1 % (0-0); Neutrophil 90 % (42-75); Platelet Adequacy Comment Platelets Normal; Potassium 4.3 mmol/L (3.5-5.1); Protein, Total 5.1 g/dL (5.8-8.1); Sodium 139 mmol/L (136-145); Total Cell Count 103
[2023-02-26] MEDS ORDERED: fentaNYL 75 mcg/hour Patch TD SCH (09:00)
[2023-02-26] MEDS: Folic Acid/Vit B Comp W-C PO SCH (09:30)
[2023-02-26] MEDS: Cefepime 2 GM in Sodium Chloride 0.9% 100 ML IVPB SCH ×2 (09:33→19:59)
[2023-02-26] MEDS: Vancomycin HCl 750 MG in Sodium Chloride 0.9% 250 ML 250 ML IVPB SCH ×2 (11:41→20:00)
[2023-02-26] MEDS ORDERED: Lorazepam 1 MG TAB PO SCH (15:15)
[2023-02-26] MEDS: Promethazine 25 MG TAB PO SCH (19:59)
[2023-02-26] MEDS: hydrOXYzine 25 MG TAB PO SCH (19:59)
[2023-02-26] MEDS: Lorazepam 1 MG TAB PO SCH (19:59)
[2023-02-27] MEDS: HYDROcodone/Acetaminophen 10/325 mg Tablet PO PRN ×4 (04:33→20:58)
[2023-02-27 06:50] LABS: Hematocrit 22.6 % (36.0-47.0); Hemoglobin 7.2 g/dL (12.0-16.0); Mean Corpuscular HGB CONC 31.9 g/dL (32.0-36.0); Mean Corpuscular Hemoglobin 32.4 pg (27.0-31.0); Mean Corpuscular Volume 101.8 fl (78.0-98.0); Mean Platelet Volume 9.7 fL (7.4-10.4); Platelet Count 290 10x3/uL (130-400); Red Blood Cell (RBC) Count 2.22 mill/uL (4.20-5.40); White Blood Cell (WBC) Count 11.4 10x3/uL (4.8-10.8)
[2023-02-27 07:07] LABS: ALT (SGPT) 7 U/L (8-55); AST (SGOT) 11 U/L (5-34); Alkaline Phosphatase 64 U/L (40-110); Anion Gap 12 mmol/L (10-20); BUN (Urea Nitrogen) 13 mg/dL (9.8-20.1); Bilirubin, Total 0.2 mg/dL (0.2-1.2); Calc. Creatinine Clearance 64 mL/min (70-130); Calcium 8.8 mg/dL (7.8-10.44); Carbon Dioxide 26 mmol/L (23-31); Chloride 105 mmol/L (98-107); Estimated GFR 79; Globulin 2.2 g/dL (2.4-3.5); Glucose 75 mg/dL (80-115); Potassium 3.8 mmol/L (3.5-5.1); Protein, Total 5.2 g/dL (5.8-8.1); Sodium 139 mmol/L (136-145)
[2023-02-27 07:29] LABS: Vancomycin, Trough 22.9 ug/mL
[2023-02-27 07:31] LABS: Delete Auto Diff?? YES; Manual Diff?? YES
[2023-02-27 08:10] LABS: Anisocytosis MODERATE=16-30 cells HPF (0-5); Band 7 % (5-11); CellaVision Operator ID lab.dlt; Hypochromia SLIGHT = 6-15 cells HPF (0-5); Lymphocytes 7 % (21-51); Macrocytosis SLIGHT = 6-15 cells HPF (0-5); Neutrophil 86 % (42-75); Platelet Adequacy Comment Platelets Normal; Poikilocytosis SLIGHT = 6-15 cells HPF (0-5); Polychromasia SLIGHT = 2-3 cells HPF (0-2); Stomatocytes SLIGHT = 2-5 cells HPF (0-1); Total Cell Count 100
[2023-02-27] MEDS: Folic Acid/Vit B Comp W-C PO SCH (09:40)
[2023-02-27] MEDS: Cefepime 2 GM in Sodium Chloride 0.9% 100 ML IVPB SCH ×2 (09:40→20:58)
[2023-02-27 10:11] LABS: Vancomycin, Trough 19.3 ug/mL
[2023-02-27] MEDS: Vancomycin HCl 750 MG in Sodium Chloride 0.9% 250 ML 250 ML IVPB SCH (11:04)
[2023-02-27] MEDS: Vancomycin HCl 500 MG in Sodium Chloride 0.9% 100 ML IVPB SCH ×2 (12:23→23:22)
[2023-02-27] MEDS: HYDROmorphone 2 MG TAB PO PRN ×2 (13:12→17:00)
[2023-02-27] MEDS: Promethazine 25 MG TAB PO SCH (20:58)
[2023-02-27] MEDS: hydrOXYzine 25 MG TAB PO SCH (20:58)
[2023-02-27] MEDS: Lorazepam 1 MG TAB PO SCH (20:58)
[2023-02-28 03:47] LABS: Hematocrit 22.3 % (36.0-47.0); Hemoglobin 7.1 g/dL (12.0-16.0); Mean Corpuscular HGB CONC 31.8 g/dL (32.0-36.0); Mean Corpuscular Hemoglobin 32.3 pg (27.0-31.0); Mean Corpuscular Volume 101.4 fl (78.0-98.0); Mean Platelet Volume 9.8 fL (7.4-10.4); Platelet Count 264 10x3/uL (130-400); RBC Distribution Width 20.2 % (11.5-14.5)
[2023-02-28 04:13] LABS: ALT (SGPT) 11 U/L (8-55); AST (SGOT) 13 U/L (5-34); Alkaline Phosphatase 67 U/L (40-110); Anion Gap 13 mmol/L (10-20); BUN (Urea Nitrogen) 11 mg/dL (9.8-20.1); Bilirubin, Total 0.2 mg/dL (0.2-1.2); Calc. Creatinine Clearance 70 mL/min (70-130); Carbon Dioxide 27 mmol/L (23-31); Chloride 104 mmol/L (98-107); Estimated GFR 88; Globulin 2.5 g/dL (2.4-3.5); Glucose 75 mg/dL (80-115); Potassium 3.9 mmol/L (3.5-5.1); Protein, Total 5.5 g/dL (5.8-8.1); Sodium 140 mmol/L (136-145)
[2023-02-28 04:25] LABS: Delete Auto Diff?? YES; Manual Diff?? YES
[2023-02-28 05:01] LABS: Anisocytosis SLIGHT = 6-15 cells HPF (0-5); Band 9 % (5-11); CellaVision Operator ID lab.abc; Large Platelets 4.9 % (0-5); Lymphocytes 22 % (21-51); Monocytes 1 % (0-10); Neutrophil 67 % (42-75); Platelet Adequacy Comment Platelets Normal; Smudge Cells 6.8 %; Total Cell Count 103
[2023-02-28] MEDS ORDERED: fentaNYL 50 mcg/mL 1 mL Vial ONE ×2 (08:27→09:04)
[2023-02-28] MEDS ORDERED: Iopamidol 300 61% 100 ML VIAL FS ONE (09:44)
[2023-02-28] MEDS: Cefepime 2 GM in Sodium Chloride 0.9% 100 ML IVPB SCH (10:23)
[2023-02-28] MEDS: Folic Acid/Vit B Comp W-C PO SCH (10:23)
[2023-02-28] MEDS: HYDROcodone/Acetaminophen 10/325 mg Tablet PO PRN (10:26)
[2023-02-28] MEDS: Vancomycin HCl 500 MG in Sodium Chloride 0.9% 100 ML IVPB SCH (12:09)
[2023-02-28 15:42] VITALS: BP 144/84; TEMP 98.8
== END 2023-02-28 15:53 | disposition home or self-care (01) | DRG 872 ==
LOC: ERS 07:51 → SURG A 11:55
PROVIDERS: ADMIT Student in an Organized Health Care Education/Training Program; ATTEND Student in an Organized Health Care Education/Training Program
PROC: 3E03329 Introduction of Other Anti-infective into Peripheral Vein, Percutaneous Approach (ICD-10-PCS; principal; 2023-02-24)
PROC: 0T25X0Z Change Drainage Device in Kidney, External Approach (ICD-10-PCS; 2023-02-28)
DX: A41.9 Sepsis, unspecified organism (principal); N13.6 Pyonephrosis; C53.9 Malignant neoplasm of cervix uteri, unspecified; N18.9 Chronic kidney disease, unspecified; E87.6 Hypokalemia; D63.1 Anemia in chronic kidney disease; R00.0 Tachycardia, unspecified; M19.90 Unspecified osteoarthritis, unspecified site; Z93.6 Other artificial openings of urinary tract status; Z98.890 Other specified postprocedural states; Z79.899 Other long term (current) drug therapy; Z90.49 Acquired absence of other specified parts of digestive tract; Z87.891 Personal history of nicotine dependence
CPT/HCPCS: 50435; 74177; 80053; 80202; 81001; 83605; 84145; 85025; 87040; 87077; 87086; 87186; 96361; 96365; 96366; 96375; C1729; J0692; J1170; J1642; J1650; J2270; J2405; J3010; J3370; J3370-JW; J3490; J7050; J7120; Q0169; Q9967

== ENCOUNTER 2023-05-31 10:58 | Outpatient (CLI) | payer MEDICARE | END 2023-05-31 10:59 | disposition home or self-care (01) | LOC: PET 10:58 | PROVIDERS: ATTEND Internal Medicine | DX: C53.8 Malignant neoplasm of overlapping sites of cervix uteri (principal) | CPT/HCPCS: 78815; A9552 ==

== ENCOUNTER 2023-06-07 07:07 | Day surgery (SDC) | payer MEDICARE ==
[2023-06-07] MEDS ORDERED: Sodium Bicarbonate 0.5 MEQ/ML SDV 10 ML ONE (07:21)
[2023-06-07] MEDS ORDERED: Lidocaine 1% PF 5 ML VIAL ONE (07:22)
[2023-06-07] MEDS ORDERED: Iopamidol 100 ML FS ONE (07:22)
[2023-06-07] MEDS ORDERED: fentaNYL 50 mcg/mL 1 mL Vial ONE (07:46)
[2023-06-07 09:40] VITALS: BP 152/94; TEMP 98.1
== END 2023-06-07 09:20 | disposition home or self-care (01) ==
LOC: SPEC 07:07
PROVIDERS: ATTEND Urology
PROC: 0T25X0Z Change Drainage Device in Kidney, External Approach (ICD-10-PCS; principal; 2023-06-07)
DX: N13.5 Crossing vessel and stricture of ureter without hydronephrosis (principal); N13.30 Unspecified hydronephrosis; C53.9 Malignant neoplasm of cervix uteri, unspecified
CPT/HCPCS: 50435; C1729; J3010; 36415; 80048; 82728; 83540; 83550; 85025; Q9967

== ENCOUNTER 2023-06-26 07:45 | Outpatient (CLI) | payer MEDICARE | END 2023-06-26 07:46 | disposition home or self-care (01) | LOC: SCSMRI 07:45 | PROVIDERS: ATTEND Internal Medicine | DX: C53.9 Malignant neoplasm of cervix uteri, unspecified (principal) | CPT/HCPCS: 72197 ==

== ENCOUNTER 2023-10-04 11:32 | Emergency (ER) | payer MEDICARE ==
[2023-10-04] MEDS ORDERED: Iopamidol 100 ML FS ONE (13:08)
[2023-10-04] MEDS ORDERED: Lidocaine 1% PF 5 ML VIAL ONE (13:08)
[2023-10-04] MEDS ORDERED: Sodium Chloride 0.9% 500 ML ONE (13:08)
[2023-10-04] MEDS ORDERED: Sodium Bicarbonate 2.5 MEQ/5 ML SDV ONE (13:08)
[2023-10-04] MEDS ORDERED: LevoFLOXacin D5W 500 mg (100 mL) BAG ONE ×2 (13:31→13:41)
== END 2023-10-04 16:14 | disposition home or self-care (01) ==
LOC: ERS 11:32
DX: T83.092A Other mechanical complication of nephrostomy catheter, initial encounter (principal); F17.200 Nicotine dependence, unspecified, uncomplicated
CPT/HCPCS: 50435; 75984; C1769; J1642; J1956; J7030; Q9967

== ENCOUNTER 2023-11-21 12:30 | Outpatient (CLI) | payer MEDICARE | END 2023-11-21 12:31 | disposition home or self-care (01) | LOC: PET 12:30 | PROVIDERS: ATTEND Internal Medicine | DX: C53.8 Malignant neoplasm of overlapping sites of cervix uteri (principal) | CPT/HCPCS: 78815; A9552 ==

== ENCOUNTER 2023-11-21 14:27 | Outpatient (CLI) | payer MEDICARE | END 2023-11-21 14:28 | disposition home or self-care (01) | LOC: SCSMRI 14:27 | PROVIDERS: ATTEND Internal Medicine | DX: C76.0 Malignant neoplasm of head, face and neck (principal) | CPT/HCPCS: 72197 ==

== ENCOUNTER → 2023-12-27 | Day surgery (SDC) | payer MEDICARE ==
[~2023-12-27] MED LIST: Iopamidol 30 ML ONE; Lidocaine 1% PF 5 ML VIAL ONE; Lidocaine 2% 6 ML (Jelly) SYR ONE; Sodium Bicarbonate 2.5 MEQ/5 ML SDV ONE; Sodium Chloride 0.9% 500 ML ONE
== END ==
LOC: SPEC 07:26
PROVIDERS: ATTEND Urology
PROC: 0T9B70Z Drainage of Bladder with Drainage Device, Via Natural or Artificial Opening (ICD-10-PCS; principal; 2023-12-27)
DX: N13.1 Hydronephrosis with ureteral stricture, not elsewhere classified (principal)
CPT/HCPCS: 50435; 75984; C1769; J7030; Q9967

== ENCOUNTER 2024-02-01 10:15 | Outpatient (CLI) | payer MEDICARE | END 2024-02-01 10:16 | disposition home or self-care (01) | LOC: PET 10:15 | PROVIDERS: ATTEND Internal Medicine | DX: C53.8 Malignant neoplasm of overlapping sites of cervix uteri (principal); C67.9 Malignant neoplasm of bladder, unspecified; R53.83 Other fatigue | CPT/HCPCS: 78815; A9552 ==

== ENCOUNTER 2024-03-06 01:10 | Emergency (ER) | payer MEDICARE ==
[2024-03-06 02:40] LABS: #Basophils 0.06 10x3/uL (0.0-0.2); %Basophils 0.8 % (0.0-1.0); %Eosinophils 4.3 % (0.0-10.0); %Lymphocytes 24.7 % (21.0-51.0); %Monocytes 8.8 % (0.0-10.0); Hematocrit 31.2 % (36.0-47.0); Mean Corpuscular HGB CONC 32.1 g/dL (32.0-36.0); Mean Corpuscular Volume 109.1 fL (78.0-98.0); Mean Platelet Volume 9.3 fL (7.4-10.4); Platelet Count 203 10x3/uL (130-400); RBC Distribution Width 14.2 % (11.5-14.5); Red Blood Cell (RBC) Count 2.86 mill/uL (4.20-5.40)
[2024-03-06 02:57] LABS: Acetaminophen Less than 10 mcg/mL (Less than 10); Alcohol Less than 10.0 mg/dL (Less than 10); Salicylate Less than 8.0 mg/dL (Less than 8.0)
[2024-03-06 03:00] LABS: Troponin I Less than 0.010 ng/mL (< 0.028)
[2024-03-06 03:01] LABS: ALT (SGPT) 14 U/L (8-55); AST (SGOT) 13 U/L (5-34); Albumin 3.3 g/dL (3.4-4.8); Alkaline Phosphatase 82 U/L (40-110); Anion Gap 15 mmol/L (10-20); BUN (Urea Nitrogen) 26 mg/dL (9.8-20.1); Bilirubin, Total 0.3 mg/dL (0.2-1.2); Calc. Creatinine Clearance 0 mL/min (70-130); Calcium 8.7 mg/dL (7.8-10.44); Carbon Dioxide 17 mmol/L (23-31); Chloride 115 mmol/L (98-107); Estimated GFR 39; Glucose 109 mg/dL (80-115); Lipase 17 U/L (8-78); Potassium 3.7 mmol/L (3.5-5.1); Protein, Total 6.3 g/dL (5.8-8.1); Sodium 143 mmol/L (136-145)
[2024-03-06 05:40] LABS: Bacteria/HPF 3+ HPF (None Seen); Bilirubin Negative (Negative); Blood, Urine 1+ (Negative); CAUTI Indications for Culture Dysuria,urgency,freq; Clarity Extra Turbid (Clear); Glucose, Urine (Dipstick) Normal (Negative); Ketone, Urine Negative (Negative); Leukocyte 500 Leu/uL (Negative); Nitrite 1+ (Negative); Protein, Urine (Dipstick) 50 mg/dL (Neg-Trace); Renal Epithelial 0-3 HPF (None Seen); Specific Gravity, Urine 1.028 (1.002-1.036); Squamous Epithelial 0-3 HPF (0-3); Urobilinogen Normal mg/dL (Less than 2); WBC/HPF Greater than 50 HPF (0-3)
[2024-03-06 05:41] LABS: Urine Culture Reflex Yes Yes
[2024-03-06 05:43] LABS: Amphetamine Detected (NotDetected); Barbiturates Screen Not Detected (NotDetected); Benzodiazepine Screen Detected (NotDetected); Cocaine Metabolite Screen Not Detected (NotDetected); Methadone Not Detected (NotDetected); Methamphetamine Not Detected (NotDetected); Opiate Screen Detected (NotDetected); Oxycodone Screen Not Detected (NotDetected); Phencyclidine (PCP) Not Detected (NotDetected); THC/Cannabinoid Screen Not Detected (NotDetected); Tricyclic Screen Not Detected (NotDetected)
[2024-03-06] MEDS ORDERED: Acetaminophen 500 MG TAB ONE (06:16)
[2024-03-06] MEDS ORDERED: oxyCODONE 5 MG TAB PO SCH (06:45)
[2024-03-06] MEDS ORDERED: Iopamidol-370 76% 500 ML MDV (1 ML CHARGE) ONE (13:29)
== END 2024-03-06 10:30 | disposition home or self-care (01) ==
LOC: ERS 01:10
DX: S06.9X9A Unspecified intracranial injury with loss of consciousness of unspecified duration, initial encounter (principal); S22.20XA Unspecified fracture of sternum, initial encounter for closed fracture; S32.039A Unspecified fracture of third lumbar vertebra, initial encounter for closed fracture; W18.30XA Fall on same level, unspecified, initial encounter
CPT/HCPCS: 70450; 71260; 72125; 74177; 80053; 80306; 80307; 81001; 83690; 84484; 85025; 87077; 87086; 87186; 93005; 99284; J1642; 36415; Q9967

== ENCOUNTER 2024-04-08 08:17 | Day surgery (SDC) | payer MEDICARE ==
[2024-04-08] MEDS ORDERED: Iopamidol 30 ML ONE (08:19)
[2024-04-08] MEDS ORDERED: Lidocaine 1% PF 5 ML VIAL ONE (08:19)
[2024-04-08] MEDS ORDERED: Sodium Chloride 0.9% 500 ML ONE (08:19)
[2024-04-08 09:51] VITALS: BP 179/94; TEMP 97.6
== END 2024-04-08 09:40 | disposition home or self-care (01) ==
LOC: SPEC 08:17
PROVIDERS: ATTEND Urology
PROC: 0T25X0Z Change Drainage Device in Kidney, External Approach (ICD-10-PCS; principal; 2024-04-08)
DX: N13.5 Crossing vessel and stricture of ureter without hydronephrosis (principal); C53.9 Malignant neoplasm of cervix uteri, unspecified
CPT/HCPCS: 50435; 75984; C1729; C1769; J7030; Q9967

== ENCOUNTER 2024-05-14 15:32 | Emergency (ER) | payer MEDICARE | END 2024-05-14 17:08 | LOC: ERS 15:32 | DX: Z53.21 Procedure and treatment not carried out due to patient leaving prior to being seen by health care provider (principal) ==

== ENCOUNTER 2024-05-15 11:48 | Day surgery (SDC) | payer MEDICARE ==
[2024-05-15] MEDS ORDERED: Sodium Chloride 0.9% 500 ML ONE (14:37)
[2024-05-15] MEDS ORDERED: Iopamidol 30 ML ONE (14:37)
[2024-05-15] MEDS ORDERED: Lidocaine 1% w/Epinephrine 1:100K 20 ML VIAL ONE (14:43)
[2024-05-15] MEDS ORDERED: Sodium Bicarbonate 2.5 MEQ/5 ML SDV ONE (14:43)
[2024-05-15] MEDS ORDERED: Lidocaine 1% PF 5 ML VIAL ONE (14:44)
== END 2024-05-15 15:50 | disposition home or self-care (01) ==
LOC: SPEC 11:48
PROVIDERS: ATTEND Urology
PROC: 0T25X0Z Change Drainage Device in Kidney, External Approach (ICD-10-PCS; principal; 2024-05-15)
DX: N13.5 Crossing vessel and stricture of ureter without hydronephrosis (principal)
CPT/HCPCS: 50435; 75984; C1729; C1769; J7030; Q9967

== ENCOUNTER 2024-06-04 07:02 | Emergency (ER) | payer MEDICARE | END 2024-06-04 08:35 | disposition home or self-care (01) | LOC: ERS 07:02 | DX: R11.2 Nausea with vomiting, unspecified (principal); Z87.891 Personal history of nicotine dependence | CPT/HCPCS: 94760; 99284 ==

== ENCOUNTER 2024-12-25 09:28 | Day surgery (SDC) | payer MEDICARE ==
[2024-12-25] MEDS ORDERED: Sodium Bicarbonate 2.5 MEQ/5 ML SDV ONE (09:30)
[2024-12-25] MEDS ORDERED: Lidocaine 1% PF 5 ML VIAL ONE (09:30)
== END 2024-12-25 10:13 | disposition home or self-care (01) ==
LOC: SPEC 09:28
PROVIDERS: ATTEND Urology
PROC: 0T25X0Z Change Drainage Device in Kidney, External Approach (ICD-10-PCS; principal; 2024-12-25)
DX: N13.1 Hydronephrosis with ureteral stricture, not elsewhere classified (principal); Z85.41 Personal history of malignant neoplasm of cervix uteri
CPT/HCPCS: 50435; 75984; C1729; C1769; J7030; Q9967

== ENCOUNTER 2025-03-03 10:07 | Day surgery (SDC) | payer MEDICARE ==
[2025-03-03] MEDS ORDERED: Sodium Bicarbonate 2.5 MEQ/5 ML SDV ONE (10:25)
[2025-03-03] MEDS ORDERED: Lidocaine 1% w/Epinephrine 1:100K 20 ML VIAL ONE (10:25)
== END 2025-03-03 12:00 | disposition home or self-care (01) ==
LOC: SPEC 10:07
PROVIDERS: ATTEND Urology
PROC: 0T25X0Z Change Drainage Device in Kidney, External Approach (ICD-10-PCS; principal; 2025-03-03)
DX: N13.1 Hydronephrosis with ureteral stricture, not elsewhere classified (principal)
CPT/HCPCS: 50435; 75984; 76770; C1729; C1769; J7030; Q9967